=== PATIENT | female | born 1995 | race Caucasian/White ===

== ENCOUNTER 2016-08-19 07:43 | Inpatient (IN) | payer OTHER, SELFPAY ==
[~2016-08-19] VITALS: Ht 177.8 cm; Wt 95.3 kg
[2016-08-19] VITALS (10 sets, daily range): BP systolic 132–153; RESP 16–20; TEMP 97.9–98.1; Ht 177.8 cm; Wt 95.3 kg
[2016-08-19] MEDS ORDERED: ONDANSETRON 4 MG VIAL IV PRN (09:15)
[2016-08-19] MEDS ORDERED: METOCLOPRAMIDE 10 MG/2 ML VIAL IV PUSH PRN (09:15)
[2016-08-19] MEDS ORDERED: ALU/MAG/SIM 30 ML UDC PO PRN (09:15)
[2016-08-19] MEDS ORDERED: FAMOTIDINE 20 MG INJ IV PRN (09:15)
[2016-08-19] MEDS ORDERED: FAMOTIDINE 20 MG TAB PO PRN (09:15)
[2016-08-19] MEDS ORDERED: OXYTOCIN 15 UNITS/250 ML NS 15 UNITS in PART FILL PIGGYBACK 1 EA IV SCH (09:15)
[2016-08-19] MEDS ORDERED: TERBUTALINE 1 MG/ML VIAL SUBQ PRN (09:15)
[2016-08-19] MEDS ORDERED: LIDOCAINE 1% 30 ML PF INFILTRATE ONE (09:15)
[2016-08-19] MEDS ORDERED: LACT RINGERS 1,000 ML IV SCH (09:15)
[2016-08-19] MEDS ORDERED: PROMETHAZINE 25 MG/ML VIAL IV PRN (09:15)
[2016-08-19] MEDS ORDERED: OXYTOCIN 15 UNITS/250 ML NS 250 ML IV SCH (09:15)
[2016-08-19] MEDS ORDERED: CEFAZOLIN (LD/OB) 100 ML IV PRN (09:15)
[2016-08-19] MEDS ORDERED: MORPHINE 5 MG/1 ML VIAL IV PRN (09:15)
[2016-08-19] MEDS ORDERED: LIDOCAINE 1% BUFFERED 1 ML SYR INTRADERM PRN (09:15)
[2016-08-19] MEDS ORDERED: OXYTOCIN 15 UNITS/250 ML NS 500 ML IV ONE (10:03)
[2016-08-19] MEDS ORDERED: MAG HYDROX 30 ML UDC PO PRN (15:25)
[2016-08-19] MEDS ORDERED: TDaP 0.5 ML VIAL IM.VACC ONE (15:25)
[2016-08-19] MEDS ORDERED: ASTRINGENT MED PADS 40'S TOPICAL PRN (15:25)
[2016-08-19] MEDS ORDERED: DERMOPLAST SPRAY TOPICAL PRN (15:25)
[2016-08-19] MEDS: MISOPROSTOL 200 MCG TAB PO SCH ×2 (15:25→18:26)
[2016-08-19] MEDS ORDERED: OXYTOCIN 15 UNITS/250 ML NS 250 ML IV ONE (15:25)
[2016-08-19] MEDS ORDERED: MEASLES,MUMPS,RUBELLA VAC SUBQ.VACC ONE (15:25)
[2016-08-19] MEDS ORDERED: ZOLPIDEM 5 MG TAB PO PRN (15:25)
[2016-08-19] MEDS: Ibuprofen 600 MG TAB PO SCH ×2 (17:50→23:19)
[2016-08-20 01:09] VITALS: BP_SYST 139; RESP 16; TEMP 98.1
[2016-08-20 05:23] VITALS: BP_SYST 139; RESP 18; TEMP 97.8
[2016-08-20] MEDS: Ibuprofen 600 MG TAB PO SCH ×3 (05:48→18:21)
[2016-08-20] MEDS: DOCUSATE SOD 100 MG CAP PO SCH (09:18)
[2016-08-20 10:31] VITALS: BP_SYST 148; RESP 20; TEMP 97.5
[2016-08-20] MEDS ORDERED: Flu Vaccine Quadrivalent 60 MCG/0.5 ML IM.VACC ONE (10:40)
[2016-08-20 13:05] VITALS: BP_SYST 137; RESP 18; TEMP 98
[2016-08-20 18:38] VITALS: BP_SYST 140; RESP 18; TEMP 98
[2016-08-21] MEDS: Ibuprofen 600 MG TAB PO SCH ×3 (00:19→11:34)
[2016-08-21 05:33] VITALS: BP_SYST 135; RESP 20; TEMP 97.3
[2016-08-21] MEDS: DOCUSATE SOD 100 MG CAP PO SCH (09:04)
[2016-08-21] MEDS ORDERED: TDaP 0.5 ML VIAL IM.VACC ONE (10:09)
[2016-08-21 10:57] VITALS: BP_SYST 135; RESP 20; TEMP 97.3
== END 2016-08-21 13:19 | disposition home or self-care (01) | DRG 775 ==
LOC: LDOP 07:43 → EEVIPCON 07:43 → LD 08:33 → OB 18:08
PROVIDERS: ADMIT Obstetrics & Gynecology Reproductive Endocrinology; ATTEND Obstetrics & Gynecology Reproductive Endocrinology
PROC: 10E0XZZ Delivery of Products of Conception, External Approach (ICD-10-PCS; principal; 2016-08-19)
PROC: 0KQM0ZZ Repair Perineum Muscle, Open Approach (ICD-10-PCS; 2016-08-19)
DX: O70.0 First degree perineal laceration during delivery (principal); Z37.0 Single live birth; Z3A.40 40 weeks gestation of pregnancy
CPT/HCPCS: 84112; 85025; 86850; 86870; 86900; 86901; 86970; 96372